=== PATIENT | female | born 2000 | race Hispanic/Latino ===

== ENCOUNTER 2019-08-08 19:52 | Emergency (ER) | payer MEDICAID ==
[2019-08-08] MEDS ORDERED: ACETAMINOPHEN EXTRA STRENGTH 500 MG TABLET ONE (20:08)
[2019-08-08 20:42] LABS: RAPID GROUP A STREP NEGATIVE (NEGATIVE)
== END 2019-08-08 21:08 | disposition home or self-care (01) ==
LOC: EDH 19:52
DX: J10.1 Influenza due to other identified influenza virus with other respiratory manifestations (principal); B34.9 Viral infection, unspecified; Z90.49 Acquired absence of other specified parts of digestive tract
CPT/HCPCS: 87804; 87880